=== PATIENT | female | born 1950 | race Caucasian/White ===

== ENCOUNTER 2019-12-28 07:17 | Day surgery (SDC) | payer MEDICARE, BC ==
[2019-12-25 12:38] LABS: HEMATOCRIT 43.3 % (36.0-47.0); HEMOGLOBIN 14.6 g/dL (12.0-15.5); MEAN CORPUSCULAR HEMOGLOBIN 32.7 pg (27.0-33.4); MEAN CORPUSCULAR HGB CONC 33.6 g/dL (32.0-36.0); MEAN CORPUSCULAR VOLUME 97 fl (80-97); PLATELET COUNT 208 10^3/uL (150-450); RED BLOOD COUNT 4.46 10^6/uL (3.72-5.28); RED CELL DISTRIBUTION WIDTH 12.3 % (11.5-14.0); WHITE BLOOD COUNT 3.6 10^3/uL (4.0-10.5)
[2019-12-25 12:55] LABS: APPEARANCE,URINE CLEAR; BILIRUBIN,URINE NEGATIVE (NEGATIVE); COLOR,URINE YELLOW; GLUCOSE, URINE NEGATIVE (NEGATIVE); KETONES,URINE NEGATIVE (NEGATIVE); LEUKOCYTE ESTERASE,URINE NEGATIVE (NEGATIVE); NITRITE,URINE NEGATIVE (NEGATIVE); PROTEIN,URINE NEGATIVE (NEGATIVE); URINE SPECIFIC GRAVITY 1.006; UROBILINOGEN,URINE NEGATIVE mg/dL (<2.0)
[~2019-12-28 07:17] MED LIST: CEFAZOLIN 2 GM/D5W RTU 2 GM/50 ML RTUPB IV PRN; LACTATED RINGERS 1000 ML IV PRN; LIDOCAINE 0.5% INJ-PF (5 MG/ML) 50 ML SDV SUBCUT PRN
[2019-12-28] MEDS ORDERED: MIDAZOLAM 2 MG/2 ML INJ ONE (07:50)
[2019-12-28] MEDS ORDERED: FENTANYL CITRATE INJ/PF 100 MCG/2 ML AMPUL ONE (07:50)
[2019-12-28] MEDS ORDERED: ONDANSETRON HCL INJ/PF 4 MG/2 ML SDV ONE (07:51)
[2019-12-28] MEDS ORDERED: PROPOFOL INJ 200 MG/20 ML VIAL IV ONE (07:51)
[2019-12-28] MEDS ORDERED: CEFAZOLIN 2 GM/D5W RTU 2 GM/50 ML RTUPB IV ONE (07:55)
[2019-12-28] MEDS ORDERED: LIDOCAINE 1% INJ-PF (10 MG/ML) 30 ML SDV ONE (08:39)
[2019-12-28] MEDS ORDERED: SCOPOLAMINE HYDROBROMIDE 1.5 MG PATCH.TD72 ONE (08:45)
[2019-12-28] MEDS ORDERED: FAMOTIDINE INJ/PF 20 MG/2 ML SDV IV ONE (08:45)
[2019-12-28] MEDS ORDERED: LIDOCAINE 1%/EPINEPHRINE INJ 20 ML VIAL ONE (08:55)
[2019-12-28] MEDS ORDERED: MEPERIDINE HCL/PF INJ 25 MG/1 ML DISP.SYRIN IV PRN (09:13)
[2019-12-28] MEDS ORDERED: ONDANSETRON HCL INJ/PF 4 MG/2 ML SDV IV PRN (09:13)
[2019-12-28] MEDS ORDERED: DIPHENHYDRAMINE HCL 50 MG/ML VIAL IV PRN (09:13)
[2019-12-28] MEDS ORDERED: FENTANYL CITRATE INJ/PF 100 MCG/2 ML AMPUL IV PRN ×3 (09:13)
[2019-12-28] MEDS ORDERED: PROMETHAZINE HCL INJ 25 MG/1 ML VIAL IV PRN ×2 (09:13)
--- NOTE | 2019-12-28 09:46 | Operative Report ---
Operative Report DATE OF SURGERY: 12/28/19 PREOPERATIVE DIAGNOSIS: Recurrent Bartholin duct cyst POSTOPERATIVE DIAGNOSIS: Same OPERATION: Excision of left Bartholin gland SURGEON: USAMA MARTINEZ ANESTHESIA: LMAC TISSUE REMOVED OR ALTERED: Bartholin gland ESTIMATED BLOOD LOSS: Less than 10 cc PROCEDURE: Patient placed in dorsolithotomy patient prepped draped sterile fashion. Was evidence of previous I&D of her left Bartholin there was a approximately 3 to 4 mm incision that was open. The tissue surrounding this was injected with dilute solution of Pitressin and lidocaine. The incision was made approximately 2-1/2 cm. Underlying duct and gland was then carefully dissected until it was successfully removed. 1 area of bleeding was noted this was grasped with a Allis clamp a tie of 2-0 Vicryl was placed and hemostasis was noted. Surgical bed was then closed interrupted sutures of 2-0 Vicryl. It was closed with running suture of 2-0 Vicryl. Patient taken to recovery in good condition.
[2019-12-28] MEDS ORDERED: OXYCODONE-ACETAMINOPHEN 5-325 MG TABLET PO PRN (10:01)
[2019-12-28] MEDS ORDERED: ONDANSETRON HCL 8 MG TABLET PO PRN (10:01)
[2019-12-28] MEDS ORDERED: DEXAMETHASONE SOD PHOSPHATE INJ 4 MG/1 ML VIAL ONE (10:13)
[2019-12-28] MEDS ORDERED: IBUPROFEN 800 MG TABLET ONE (11:18)
[2019-12-28 11:24] VITALS: BP 126/71
[2019-12-28] MEDS ORDERED: IBUPROFEN 800 MG TABLET PO SCH (14:00)
== END 2019-12-28 11:40 | disposition home or self-care (01) ==
LOC: OROUT 07:17
PROVIDERS: ATTEND Obstetrics & Gynecology Gynecology
DX: N75.0 Cyst of Bartholin's gland (principal); Z79.899 Other long term (current) drug therapy; Z79.82 Long term (current) use of aspirin; Z88.5 Allergy status to narcotic agent; Z88.2 Allergy status to sulfonamides; Z88.4 Allergy status to anesthetic agent; Z03.818 Encounter for observation for suspected exposure to other biological agents ruled out
CPT/HCPCS: 36415; 85027; 81001; 88304 ×2; 56740; U0003; J2250; A9270 ×2; J3010; J3490; J2405; J2704; S0028; J0690; C9803; 87635; J1100